=== PATIENT | female | born 1975 | race Asian ===

== ENCOUNTER 2021-04-02 09:45 | Emergency (ER) | payer MEDICARE ==
[~2021-04-02] VITALS: Ht 152.4 cm; Wt 38.6 kg
--- NOTE | 2021-04-02 09:55 | NUR ---
Patient came in to the er c/o left breast pain. On room air, breathing evenly and unlabored. Connected to the monitor and pulse ox. Kept comfortable, will continue to monitor accordingly. IV started and blood drawned and sent to lab.
--- NOTE | 2021-04-02 10:08 | NUR ---
Dr. Hdz, breast surgeon,
[2021-04-02 10:25] LABS: BASOPHILS # (AUTO) 0.1 K/uL (0.0-0.2); EOSINOPHILS % (AUTO) 2.3 % (0.0-6.0); HEMATOCRIT 29 % (33-45); HEMOGLOBIN 9.6 g/dL (11.5-14.8); LYMPHOCYTES # (AUTO) 0.7 K/uL (0.8-4.8); LYMPHOCYTES % (AUTO) 14.8 % (20.0-44.0); MEAN CORPUSCULAR HGB CONC 33 g/dl (31.0-36.0); MEAN CORPUSCULAR VOLUME 96 fL (82-100); MONOCYTES # (AUTO) 0.3 K/uL (0.1-1.30); MONOCYTES % (AUTO) 6.9 % (2.0-12.0); NEUTROPHILS # (AUTO) 3.2 K/uL (1.8-8.9); PLATELET COUNT (AUTO) 345 K/uL (150-450); RED BLOOD CELL COUNT(AUTO) 3.03 MIL/uL (4.0-5.2); WHITE BLOOD COUNT (AUTO) 4.4 K/uL (4.3-11.0)
[2021-04-02 10:31] LABS: CREATININE 0.9 mg/dL (0.6-1.3); POTASSIUM 4.1 mmol/L (3.5-5.1)
[2021-04-02] MEDS ORDERED: CT SWABBABLE VALVE TRANS SET 1 EA INFUS.SET MC ONE (11:08)
[2021-04-02] MEDS ORDERED: IOHEXOL-350 100 ML VIAL IV ONE (11:08)
[2021-04-02] MEDS ORDERED: IV NS 0.9% 250 ML IV ONE (11:08)
--- NOTE | 2021-04-02 12:17 | NUR ---
CALLED DR. ZAPATA [phone] IN [place] WILL TEXT HIM TO CALL BACK.
[2021-04-02 12:55] VITALS: BP 111/71
--- NOTE | 2021-04-02 12:56 | NUR ---
Patient discharged to home in stable condition. Written and verbal after care instructions given. Patient verbalizes understanding of instruction.IV removed. Catheter intact and site benign. Pressure and 4x4 applied to site. No bleeding noted.
== END 2021-04-02 12:55 | disposition home or self-care (01) ==
LOC: ER 09:45
DX: R07.89 Other chest pain (principal); R77.8 Other specified abnormalities of plasma proteins; N64.4 Mastodynia; M79.7 Fibromyalgia; Z98.82 Breast implant status
CPT/HCPCS: 36415; 71045; 71275; 80048; 84484; 84703; 85025; 85378; 93005; 99285; J7050; Q9967